=== PATIENT | male | born 1940 | race Hispanic/Latino ===

== ENCOUNTER 2019-05-22 11:38 | Emergency (ER) | payer MEDICARE, OTHER | END 2019-05-22 13:15 | disposition home or self-care (01) | LOC: MADERS 11:38 | DX: J02.9 Acute pharyngitis, unspecified (principal); B34.9 Viral infection, unspecified; K12.0 Recurrent oral aphthae; E11.9 Type 2 diabetes mellitus without complications; E03.9 Hypothyroidism, unspecified; E78.5 Hyperlipidemia, unspecified; I10 Essential (primary) hypertension; Z79.82 Long term (current) use of aspirin; Z79.84 Long term (current) use of oral hypoglycemic drugs; Z79.899 Other long term (current) drug therapy | CPT/HCPCS: 99282 ==